=== PATIENT | female | born 1955 | race Caucasian/White ===

== ENCOUNTER 2019-12-29 15:20 | Inpatient (IN) | payer OTHER, MEDICAID ==
[~2019-12-29] VITALS: Ht 160 cm; Wt 54.0 kg
[2019-12-29] MEDS ORDERED: ATOR40TA28 PO (16:02)
[2019-12-29] MEDS ORDERED: PANT40TA25 PO (16:02)
[2019-12-29] MEDS ORDERED: LITH300C3 PO ×2 (16:10→23:08)
[2019-12-29] MEDS ORDERED: ALBU8HFA IH (16:14)
[2019-12-29] MEDS ORDERED: LISI-662 PO (16:14)
[2019-12-29] MEDS ORDERED: ADV250 IH (16:14)
[2019-12-29] MEDS ORDERED: HALOPERIDOL 5 MG TABLET PO PRN (17:00)
[2019-12-29 18:15] VITALS: BP 161/89
[2019-12-29] MEDS: LORazepam 2 MG TABLET PO PRN (18:38)
[2019-12-29] MEDS ORDERED: PNEUMOCOCCAL VACCINE POLYVALENT 0.5 ML VIAL [PPSV23] IM ONE (18:45)
[2019-12-29 19:35] VITALS: BP 141/83
[2019-12-29] MEDS ORDERED: ALBUTEROL SULFATE HFA 90 MCG/PUFF 8 GM INHALER IH PRN (20:15)
[2019-12-29] MEDS: LITHIUM CARBONATE 300 MG CAPSULE PO SCH (21:39)
[2019-12-29] MEDS: LISINOPRIL 20 MG TABLET PO SCH (21:39)
[2019-12-30 00:10] VITALS: BP 110/70
[2019-12-30] MEDS ORDERED: DOCUSATE SODIUM 100 MG CAPSULE PO PRN (07:00)
[2019-12-30] MEDS ORDERED: PETROLATUM,WHITE 28 GM JELLY TP PRN (07:00)
[2019-12-30] MEDS ORDERED: ACETAMINOPHEN 325 MG TABLET PO PRN (07:00)
[2019-12-30] MEDS ORDERED: BENZOCAINE/MENTHOL LOZENGE MM PRN (07:00)
[2019-12-30] MEDS ORDERED: CloNIDine HCL 0.1 MG TABLET PO PRN (07:00)
[2019-12-30] MEDS ORDERED: LOPERAMIDE HCL 2 MG CAPSULE PO PRN (07:00)
[2019-12-30] MEDS ORDERED: MAGNESIUM HYDROXIDE SUSPENSION 30 ML UDCUP PO PRN (07:00)
[2019-12-30] MEDS ORDERED: MAG HYDROX/AL HYDROX/SIMETH ES 30 ML SUSPENSION UDCUP PO PRN (07:00)
[2019-12-30] MEDS ORDERED: ONDANSETRON HCL 4 MG TABLET PO PRN (07:00)
[2019-12-30] MEDS ORDERED: IBUPROFEN 600 MG TABLET PO PRN (07:00)
[2019-12-30] MEDS ORDERED: BACITRACIN 28.4 GM OINTMENT TP PRN (07:00)
[2019-12-30 08:20] VITALS: BP 143/72
[2019-12-30] MEDS: PANTOPRAZOLE SODIUM 40 MG DR TABLET PO SCH (08:45)
[2019-12-30] MEDS: LISINOPRIL 20 MG TABLET PO SCH (08:45)
[2019-12-30] MEDS: ATORVASTATIN CALCIUM 40 MG TABLET PO SCH (08:46)
[2019-12-30] MEDS: FLUTICASONE/VILANTEROL 200-25 MCG/INH INHALER [14] IH SCH (08:49)
[2019-12-30 16:11] VITALS: BP 135/82
[2019-12-30] MEDS: LORazepam 2 MG TABLET PO PRN (18:50)
[2019-12-30] MEDS: LITHIUM CARBONATE 300 MG CAPSULE PO SCH (20:11)
[2019-12-31 00:06] VITALS: BP 128/85
[2019-12-31 01:09] VITALS: BP 124/87
[2019-12-31 01:10] VITALS: BP 124/87
[2019-12-31 08:20] LABS: BASOPHILS % (AUTO) 1.1 % (0.0-2.0); EOSINOPHILS % (AUTO) 5.7 % (1.0-6.0); HEMATOCRIT 41.6 % (36-46); HEMOGLOBIN 13.6 g/dL (12.0-16.0); LYMPHOCYTES # (AUTO) 1.6 K/uL (1.0-4.8); LYMPHOCYTES % (AUTO) 25.1 % (22.0-44.0); MEAN CORPUSCULAR HEMOGLOBIN 29.9 pg (26.0-34.0); MEAN CORPUSCULAR HGB CONC 32.8 G/dL (31.0-37.0); MEAN CORPUSCULAR VOLUME 91 fL (80-100); MONOCYTES # (AUTO) 0.4 K/uL (0.1-1.0); MONOCYTES % (AUTO) 6.3 % (2.0-9.0); NEUTROPHILS % (AUTO) 61.8 % (40.0-70.0); PLATELET COUNT (AUTO) 405 K/uL (150-450); RED BLOOD CELL COUNT(AUTO) 4.56 MIL/uL (4.00-5.20); RED CELL DISTRIBUTION WIDTH 13.6 % (11.5-14.5)
[2019-12-31 08:31] LABS: LITHIUM 0.31 mmol/L (0.60-1.20)
[2019-12-31] MEDS: ATORVASTATIN CALCIUM 40 MG TABLET PO SCH (08:38)
[2019-12-31] MEDS: PANTOPRAZOLE SODIUM 40 MG DR TABLET PO SCH (08:38)
[2019-12-31] MEDS: LISINOPRIL 20 MG TABLET PO SCH (08:38)
[2019-12-31] MEDS: FLUTICASONE/VILANTEROL 200-25 MCG/INH INHALER [14] IH SCH (08:39)
[2019-12-31 08:42] LABS: HEMOGLOBIN A1C 6.1 % (4.5-6.2)
[2019-12-31 09:17] LABS: ALANINE AMINOTRANSFERASE 22 U/L (12-78); ALKALINE PHOSPHATASE 66 U/L (46-116); ANION GAP 9 mmol/L (8-16); ASPARTATE AMINOTRANSFERASE 11 U/L (15-37); BILIRUBIN,TOTAL 0.2 mg/dL (0.1-1.0); CALCIUM, TOTAL 9.9 mg/dL (8.8-10.5); CARBON DIOXIDE 27 mmol/L (22-29); CHLORIDE 104 mmol/L (98-107); CHOLESTEROL 177 mg/dL (131-200); CREATININE 0.84 mg/dL (0.60-1.30); FREE T4 (FREE THYROXINE) 0.73 ng/dL (0.76-1.46); GLOMERULAR FILTR. RATE CALC > 60 mL/min (>60); GLUCOSE,RANDOM 106 mg/dL (70-110); HDL CHOLESTEROL 60 mg/dL (40-60); LDL CHOL (CALC.) 101 mg/dL (0-130); SODIUM SERUM 140 mmol/L (136-145); TOTAL PROTEIN, SERUM 7.2 g/dL (6.4-8.2); TRIGLYCERIDES 80 mg/dL (15-150); UREA NITROGEN, BLOOD 25 mg/dL (7-18)
[2019-12-31 10:22] VITALS: BP 145/69
[2019-12-31 16:25] VITALS: BP 137/87
[2019-12-31] MEDS: LITHIUM CARBONATE 300 MG CAPSULE PO SCH (20:14)
[2020-01-01 01:04] VITALS: BP 140/101
[2020-01-01] MEDS: LISINOPRIL 20 MG TABLET PO SCH (08:14)
[2020-01-01] MEDS: ATORVASTATIN CALCIUM 40 MG TABLET PO SCH (08:14)
[2020-01-01] MEDS: PANTOPRAZOLE SODIUM 40 MG DR TABLET PO SCH (08:14)
[2020-01-01] MEDS: FLUTICASONE/VILANTEROL 200-25 MCG/INH INHALER [14] IH SCH (08:15)
[2020-01-01 09:00] VITALS: BP 140/92
[2020-01-01 16:20] VITALS: BP 113/83
[2020-01-01] MEDS: LORazepam 2 MG TABLET PO PRN (16:43)
[2020-01-01] MEDS: LITHIUM CARBONATE 300 MG CAPSULE PO SCH (20:08)
[2020-01-01] MEDS: ZOLPIDEM TARTRATE 10 MG TABLET PO PRN (22:12)
[2020-01-02 07:03] VITALS: BP 122/87
[2020-01-02] MEDS: FLUTICASONE/VILANTEROL 200-25 MCG/INH INHALER [14] IH SCH (08:37)
[2020-01-02] MEDS: LISINOPRIL 20 MG TABLET PO SCH (08:37)
[2020-01-02] MEDS: PANTOPRAZOLE SODIUM 40 MG DR TABLET PO SCH (08:37)
[2020-01-02] MEDS: ATORVASTATIN CALCIUM 40 MG TABLET PO SCH (08:37)
[2020-01-02 08:51] VITALS: BP 132/93
[2020-01-02] MEDS: LORazepam 2 MG TABLET PO PRN (09:27)
[2020-01-02 16:14] VITALS: BP 115/84
[2020-01-02] MEDS: LITHIUM CARBONATE 300 MG CAPSULE PO SCH (20:18)
[2020-01-02] MEDS: ZOLPIDEM TARTRATE 10 MG TABLET PO PRN (21:16)
[2020-01-03 00:51] VITALS: BP 130/86
[2020-01-03 08:46] VITALS: BP 120/86
[2020-01-03] MEDS: PANTOPRAZOLE SODIUM 40 MG DR TABLET PO SCH (10:03)
[2020-01-03] MEDS: FLUTICASONE/VILANTEROL 200-25 MCG/INH INHALER [14] IH SCH (10:03)
[2020-01-03] MEDS: LISINOPRIL 20 MG TABLET PO SCH (10:03)
[2020-01-03] MEDS: ATORVASTATIN CALCIUM 40 MG TABLET PO SCH (10:07)
[2020-01-03] MEDS: LORazepam 2 MG TABLET PO PRN (13:29)
[2020-01-03 16:15] VITALS: BP 125/90
[2020-01-03] MEDS: LITHIUM CARBONATE 300 MG CAPSULE PO SCH (20:41)
[2020-01-04] MEDS: ZOLPIDEM TARTRATE 10 MG TABLET PO PRN (00:11)
[2020-01-04 00:37] VITALS: BP 116/77
[2020-01-04 08:28] VITALS: BP 129/87
[2020-01-04] MEDS: ATORVASTATIN CALCIUM 40 MG TABLET PO SCH (08:28)
[2020-01-04] MEDS: PANTOPRAZOLE SODIUM 40 MG DR TABLET PO SCH (08:28)
[2020-01-04] MEDS: LISINOPRIL 20 MG TABLET PO SCH (08:28)
[2020-01-04] MEDS: FLUTICASONE/VILANTEROL 200-25 MCG/INH INHALER [14] IH SCH (08:28)
[2020-01-04] MEDS ORDERED: FLUT1BLS IH (13:03)
== END 2020-01-04 14:40 | disposition home or self-care (01) | DRG 885 ==
LOC: B2S 16:53
PROVIDERS: ADMIT Psychiatry & Neurology Psychiatry; ATTEND Psychiatry & Neurology Psychiatry
PROC: 3E0234Z Introduction of Serum, Toxoid and Vaccine into Muscle, Percutaneous Approach (ICD-10-PCS; principal; 2019-12-29)
DX: F31.9 Bipolar disorder, unspecified (principal); R45.851 Suicidal ideations; F17.200 Nicotine dependence, unspecified, uncomplicated; F22 Delusional disorders; F41.9 Anxiety disorder, unspecified; G47.00 Insomnia, unspecified; K59.00 Constipation, unspecified; Z23 Encounter for immunization
CPT/HCPCS: 83036; 84439; 84443; J3535

== ENCOUNTER 2020-06-18 20:57 | Inpatient (IN) | payer OTHER, MEDICAID ==
[~2020-06-18] VITALS: Ht 160 cm; Wt 66.8 kg
[~2020-06-18 20:57] MED LIST: ATOR40TA28 PO; FLUT1BLS IH; LISI-662 PO; LITH300C3 PO
[2020-06-18] MEDS ORDERED: ACETAMINOPHEN 325 MG TABLET PO PRN (21:30)
[2020-06-18] MEDS ORDERED: HydrOXYzine PAMOATE 50 MG CAPSULE PO PRN (21:30)
[2020-06-18] MEDS ORDERED: MAG HYDROX/AL HYDROX/SIMETH ES 30 ML SUSPENSION UDCUP PO PRN (21:30)
[2020-06-18] MEDS ORDERED: TUBERCULIN, PURIFIED PROTEIN DERIVATIVE 5 TU/0.1 ML SYRINGE ID ONE (21:30)
[2020-06-18] MEDS ORDERED: OLANZapine 5 MG RAPDIS TABLET PO PRN (21:30)
[2020-06-18] MEDS ORDERED: MAGNESIUM HYDROXIDE SUSPENSION 30 ML UDCUP PO PRN (21:30)
[2020-06-18] MEDS ORDERED: CYANOCOBALAMIN 1,000 MCG/ML VIAL IM ONE (21:30)
[2020-06-18] MEDS ORDERED: DIAZEPAM 10 MG TABLET PO PRN (21:30)
[2020-06-18] MEDS ORDERED: PROMETHAZINE HCL 25 MG TABLET PO PRN (21:30)
[2020-06-18] MEDS ORDERED: GuaiFENesin/D-METHORPHAN [SUGAR-FREE] 200-20MG/10 ML SYRUP UDCUP PO PRN (21:30)
[2020-06-18] MEDS ORDERED: LOPERAMIDE HCL 2 MG CAPSULE PO PRN ×2 (21:30)
[2020-06-18 21:31] VITALS: BP 134/83
[2020-06-18 21:45] VITALS: BP 143/92
[2020-06-18] MEDS ORDERED: -PHARMACY VACCINE NOTE- MISC ONE (22:00)
[2020-06-18 22:09] VITALS: BP 143/92
[2020-06-18 22:40] VITALS: BP 138/96
[2020-06-18 23:40] VITALS: BP 129/84
[2020-06-19] VITALS (9 sets, daily range): BP systolic 114–150; BP diastolic 80–108
[2020-06-19] MEDS ORDERED: DIAZEPAM 10 MG TABLET PO PRN (07:00)
[2020-06-19] MEDS ORDERED: CloNIDine HCL 0.1 MG TABLET PO PRN (07:30)
[2020-06-19 08:10] LABS: BASOPHILS % (AUTO) 1.4 % (0.0-2.0); EOSINOPHILS % (AUTO) 5.5 % (1.0-6.0); HEMATOCRIT 35.9 % (36-46); HEMOGLOBIN 12.1 g/dL (12.0-16.0); LYMPHOCYTES # (AUTO) 1.4 K/uL (1.0-4.8); MEAN CORPUSCULAR HEMOGLOBIN 30.5 pg (26.0-34.0); MEAN CORPUSCULAR HGB CONC 33.6 G/dL (31.0-37.0); MEAN CORPUSCULAR VOLUME 91 fL (80-100); MONOCYTES # (AUTO) 0.4 K/uL (0.1-1.0); MONOCYTES % (AUTO) 7.4 % (2.0-9.0); NEUTROPHILS # (AUTO) 3.5 K/uL (1.8-7.7); NEUTROPHILS % (AUTO) 60.7 % (40.0-70.0); PLATELET COUNT (AUTO) 507 K/uL (150-450); RED BLOOD CELL COUNT(AUTO) 3.96 MIL/uL (4.00-5.20); RED CELL DISTRIBUTION WIDTH 13.7 % (11.5-14.5)
[2020-06-19 08:45] LABS: HEMOGLOBIN A1C 6.5 % (3.8-5.6)
[2020-06-19 08:47] LABS: ALBUMIN 3.8 g/dL (3.4-5.0); BILIRUBIN,TOTAL 0.3 mg/dL (0.1-1.0); CALCIUM, TOTAL 9.5 mg/dL (8.8-10.5); CHOL/HDL RATIO 3.5 (3.9-5.7); CREATININE 0.97 mg/dL (0.60-1.30); FREE T4 (FREE THYROXINE) 0.86 ng/dL (0.76-1.46); POTASSIUM 3.8 mmol/L (3.5-5.1); THYROID STIMULATING HORMONE 2.91 uIU/mL (0.36-3.74); TOTAL PROTEIN, SERUM 7.4 g/dL (6.4-8.2)
[2020-06-19] MEDS: FLUTICASONE/VILANTEROL 200-25 MCG/INH INHALER [14] IH SCH (09:04)
[2020-06-19] MEDS: LISINOPRIL 20 MG TABLET PO SCH (09:05)
[2020-06-19] MEDS: FLUoxetine HCL 10 MG CAPSULE PO SCH (09:05)
[2020-06-19] MEDS: DIAZEPAM 10 MG TABLET PO SCH ×4 (09:05→20:21)
[2020-06-19] MEDS: ATORVASTATIN CALCIUM 40 MG TABLET PO SCH (09:05)
[2020-06-19] MEDS: THIAMINE 100 MG TABLET PO SCH ×2 (09:06→16:30)
[2020-06-19] MEDS: FOLIC ACID 1 MG TABLET PO SCH (09:07)
[2020-06-19] MEDS: MULTIVITAMINS WITH MINERALS, THERAPEUTIC TABLET PO SCH (09:07)
[2020-06-19] MEDS: OLANZapine 5 MG RAPDIS TABLET PO SCH (20:21)
[2020-06-19] MEDS: ZOLPIDEM TARTRATE 10 MG TABLET PO PRN (23:27)
[2020-06-20 00:05] VITALS: BP 133/85
[2020-06-20 05:09] VITALS: BP 135/74
[2020-06-20 08:14] VITALS: BP 129/80
[2020-06-20] MEDS: FLUoxetine HCL 10 MG CAPSULE PO SCH (09:01)
[2020-06-20] MEDS: DIAZEPAM 10 MG TABLET PO SCH ×4 (09:02→20:21)
[2020-06-20] MEDS: ATORVASTATIN CALCIUM 40 MG TABLET PO SCH (09:02)
[2020-06-20] MEDS: LISINOPRIL 20 MG TABLET PO SCH (09:02)
[2020-06-20] MEDS: THIAMINE 100 MG TABLET PO SCH ×2 (09:02→17:15)
[2020-06-20] MEDS: MULTIVITAMINS WITH MINERALS, THERAPEUTIC TABLET PO SCH (09:02)
[2020-06-20] MEDS: FOLIC ACID 1 MG TABLET PO SCH (09:02)
[2020-06-20] MEDS: FLUTICASONE/VILANTEROL 200-25 MCG/INH INHALER [14] IH SCH (09:02)
[2020-06-20 16:31] VITALS: BP 122/89
[2020-06-20] MEDS: OLANZapine 5 MG RAPDIS TABLET PO SCH (20:21)
[2020-06-20] MEDS: AMITRIPTYLINE HCL 50 MG TABLET PO SCH (21:00)
[2020-06-21 00:56] VITALS: BP 114/81
[2020-06-21] MEDS ORDERED: DIAZEPAM 5 MG TABLET PO PRN (07:00)
[2020-06-21 08:37] VITALS: BP 134/82
[2020-06-21] MEDS: DIAZEPAM 5 MG TABLET PO SCH ×4 (08:59→19:56)
[2020-06-21] MEDS: ATORVASTATIN CALCIUM 40 MG TABLET PO SCH (08:59)
[2020-06-21] MEDS: FOLIC ACID 1 MG TABLET PO SCH (08:59)
[2020-06-21] MEDS: MULTIVITAMINS WITH MINERALS, THERAPEUTIC TABLET PO SCH (08:59)
[2020-06-21] MEDS: LISINOPRIL 20 MG TABLET PO SCH (08:59)
[2020-06-21] MEDS: THIAMINE 100 MG TABLET PO SCH ×2 (08:59→17:05)
[2020-06-21] MEDS: FLUTICASONE/VILANTEROL 200-25 MCG/INH INHALER [14] IH SCH (09:02)
[2020-06-21] MEDS: ALBUTEROL SULFATE HFA 90 MCG/PUFF 8 GM INHALER IH PRN (13:05)
[2020-06-21 16:52] VITALS: BP 116/62
[2020-06-21 19:51] VITALS: BP 134/69
[2020-06-21] MEDS: OLANZapine 5 MG RAPDIS TABLET PO SCH (19:56)
[2020-06-21] MEDS: AMITRIPTYLINE HCL 50 MG TABLET PO SCH (19:56)
[2020-06-21] MEDS: ZOLPIDEM TARTRATE 10 MG TABLET PO PRN (22:44)
[2020-06-22] MEDS ORDERED: DIAZEPAM 5 MG TABLET PO PRN (07:00)
[2020-06-22] MEDS: THIAMINE 100 MG TABLET PO SCH ×2 (08:49→16:31)
[2020-06-22] MEDS: LISINOPRIL 20 MG TABLET PO SCH (08:49)
[2020-06-22] MEDS: MULTIVITAMINS WITH MINERALS, THERAPEUTIC TABLET PO SCH (08:49)
[2020-06-22] MEDS: ATORVASTATIN CALCIUM 40 MG TABLET PO SCH (08:49)
[2020-06-22] MEDS: FOLIC ACID 1 MG TABLET PO SCH (08:49)
[2020-06-22] MEDS: FLUTICASONE/VILANTEROL 200-25 MCG/INH INHALER [14] IH SCH (08:50)
[2020-06-22 08:56] VITALS: BP 119/87
[2020-06-22] MEDS: ALBUTEROL SULFATE HFA 90 MCG/PUFF 8 GM INHALER IH PRN (14:57)
[2020-06-22 16:53] VITALS: BP 129/72
[2020-06-22 16:54] VITALS: BP 129/72
[2020-06-22] MEDS: AMITRIPTYLINE HCL 50 MG TABLET PO SCH (20:24)
[2020-06-22] MEDS: OLANZapine 5 MG RAPDIS TABLET PO SCH (20:24)
[2020-06-22] MEDS: ZOLPIDEM TARTRATE 10 MG TABLET PO PRN (23:46)
[2020-06-23 00:34] VITALS: BP 140/98
[2020-06-23 01:09] VITALS: BP 140/98
[2020-06-23] MEDS: LISINOPRIL 20 MG TABLET PO SCH (08:35)
[2020-06-23] MEDS: ATORVASTATIN CALCIUM 40 MG TABLET PO SCH (08:35)
[2020-06-23] MEDS: MULTIVITAMINS WITH MINERALS, THERAPEUTIC TABLET PO SCH (08:35)
[2020-06-23] MEDS: FOLIC ACID 1 MG TABLET PO SCH (08:35)
[2020-06-23] MEDS: THIAMINE 100 MG TABLET PO SCH ×2 (08:35→16:39)
[2020-06-23] MEDS: FLUTICASONE/VILANTEROL 200-25 MCG/INH INHALER [14] IH SCH (08:36)
[2020-06-23 09:10] VITALS: BP 122/74
[2020-06-23 16:45] VITALS: BP 118/87
[2020-06-23 19:54] VITALS: BP 118/87
[2020-06-23] MEDS: OLANZapine 5 MG RAPDIS TABLET PO SCH (20:57)
[2020-06-23] MEDS: AMITRIPTYLINE HCL 50 MG TABLET PO SCH (20:57)
[2020-06-23] MEDS: ZOLPIDEM TARTRATE 10 MG TABLET PO PRN (20:57)
[2020-06-24 01:55] VITALS: BP 129/82
[2020-06-24 08:36] VITALS: BP 133/83
[2020-06-24] MEDS: FOLIC ACID 1 MG TABLET PO SCH (08:43)
[2020-06-24] MEDS: LISINOPRIL 20 MG TABLET PO SCH (08:43)
[2020-06-24] MEDS: MULTIVITAMINS WITH MINERALS, THERAPEUTIC TABLET PO SCH (08:43)
[2020-06-24] MEDS: ATORVASTATIN CALCIUM 40 MG TABLET PO SCH (08:43)
[2020-06-24] MEDS: FLUTICASONE/VILANTEROL 200-25 MCG/INH INHALER [14] IH SCH (08:44)
[2020-06-24] MEDS: THIAMINE 100 MG TABLET PO SCH ×2 (08:44→16:28)
[2020-06-24 16:14] VITALS: BP 116/72
[2020-06-24] MEDS: OLANZapine 5 MG RAPDIS TABLET PO SCH (20:08)
[2020-06-24] MEDS: AMITRIPTYLINE HCL 50 MG TABLET PO SCH (20:08)
[2020-06-25 06:33] VITALS: BP 140/90
[2020-06-25] MEDS: FLUTICASONE/VILANTEROL 200-25 MCG/INH INHALER [14] IH SCH (09:40)
[2020-06-25 09:41] VITALS: BP 130/83
[2020-06-25] MEDS: MULTIVITAMINS WITH MINERALS, THERAPEUTIC TABLET PO SCH (09:41)
[2020-06-25] MEDS: THIAMINE 100 MG TABLET PO SCH ×2 (09:41→17:04)
[2020-06-25] MEDS: ATORVASTATIN CALCIUM 40 MG TABLET PO SCH (09:41)
[2020-06-25] MEDS: FOLIC ACID 1 MG TABLET PO SCH (09:42)
[2020-06-25] MEDS: LISINOPRIL 20 MG TABLET PO SCH (09:42)
[2020-06-25 16:12] VITALS: BP 134/78
[2020-06-25] MEDS: AMITRIPTYLINE HCL 50 MG TABLET PO SCH (20:30)
[2020-06-25] MEDS: OLANZapine 5 MG RAPDIS TABLET PO SCH (20:31)
[2020-06-26 05:29] VITALS: BP 120/91
[2020-06-26 09:10] VITALS: BP 125/76
[2020-06-26] MEDS: MULTIVITAMINS WITH MINERALS, THERAPEUTIC TABLET PO SCH (09:54)
[2020-06-26] MEDS: LISINOPRIL 20 MG TABLET PO SCH (09:54)
[2020-06-26] MEDS: ATORVASTATIN CALCIUM 40 MG TABLET PO SCH (09:54)
[2020-06-26] MEDS: THIAMINE 100 MG TABLET PO SCH ×2 (09:55→16:42)
[2020-06-26] MEDS: FOLIC ACID 1 MG TABLET PO SCH (09:55)
[2020-06-26] MEDS: ALBUTEROL SULFATE HFA 90 MCG/PUFF 8 GM INHALER IH PRN (11:21)
[2020-06-26 16:14] VITALS: BP 125/47
[2020-06-26] MEDS: FLUTICASONE/VILANTEROL 200-25 MCG/INH INHALER [14] IH SCH (16:45)
[2020-06-26] MEDS: OLANZapine 10 MG RAPDIS TABLET PO SCH (20:00)
[2020-06-26] MEDS: AMITRIPTYLINE HCL 50 MG TABLET PO SCH (20:58)
[2020-06-27 00:12] VITALS: BP 135/80
[2020-06-27] MEDS: ZOLPIDEM TARTRATE 10 MG TABLET PO PRN (00:44)
[2020-06-27 08:31] VITALS: BP 119/68
[2020-06-27] MEDS: THIAMINE 100 MG TABLET PO SCH ×2 (08:31→16:18)
[2020-06-27] MEDS: LISINOPRIL 20 MG TABLET PO SCH (08:31)
[2020-06-27] MEDS: MULTIVITAMINS WITH MINERALS, THERAPEUTIC TABLET PO SCH (08:31)
[2020-06-27] MEDS: ATORVASTATIN CALCIUM 40 MG TABLET PO SCH (08:31)
[2020-06-27] MEDS: FOLIC ACID 1 MG TABLET PO SCH (08:31)
[2020-06-27] MEDS: FLUTICASONE/VILANTEROL 200-25 MCG/INH INHALER [14] IH SCH (08:33)
[2020-06-27 16:00] VITALS: BP 128/86
[2020-06-27] MEDS: AMITRIPTYLINE HCL 50 MG TABLET PO SCH (20:04)
[2020-06-27] MEDS: OLANZapine 10 MG RAPDIS TABLET PO SCH (20:04)
[2020-06-28 01:13] VITALS: BP 154/87
[2020-06-28] MEDS: THIAMINE 100 MG TABLET PO SCH ×2 (08:31→16:32)
[2020-06-28] MEDS: FOLIC ACID 1 MG TABLET PO SCH (08:31)
[2020-06-28] MEDS: ATORVASTATIN CALCIUM 40 MG TABLET PO SCH (08:31)
[2020-06-28] MEDS: LISINOPRIL 20 MG TABLET PO SCH (08:31)
[2020-06-28] MEDS: MULTIVITAMINS WITH MINERALS, THERAPEUTIC TABLET PO SCH (08:31)
[2020-06-28] MEDS: FLUTICASONE/VILANTEROL 200-25 MCG/INH INHALER [14] IH SCH (08:32)
[2020-06-28 10:02] VITALS: BP 123/78
[2020-06-28 16:30] VITALS: BP 129/78
[2020-06-28] MEDS: ALBUTEROL SULFATE HFA 90 MCG/PUFF 8 GM INHALER IH PRN (17:17)
[2020-06-28] MEDS: AMITRIPTYLINE HCL 50 MG TABLET PO SCH (20:20)
[2020-06-28] MEDS: OLANZapine 10 MG RAPDIS TABLET PO SCH (20:20)
[2020-06-28] MEDS: ZOLPIDEM TARTRATE 10 MG TABLET PO PRN (22:24)
[2020-06-29 00:46] VITALS: BP 119/74
[2020-06-29 08:11] VITALS: BP 112/78
[2020-06-29] MEDS: ATORVASTATIN CALCIUM 40 MG TABLET PO SCH (08:29)
[2020-06-29] MEDS: LISINOPRIL 20 MG TABLET PO SCH (08:29)
[2020-06-29] MEDS: MULTIVITAMINS WITH MINERALS, THERAPEUTIC TABLET PO SCH (08:29)
[2020-06-29] MEDS: FLUTICASONE/VILANTEROL 200-25 MCG/INH INHALER [14] IH SCH (08:31)
[2020-06-29 16:34] VITALS: BP 126/75
[2020-06-29] MEDS: ALBUTEROL SULFATE HFA 90 MCG/PUFF 8 GM INHALER IH PRN (17:51)
[2020-06-29] MEDS: AMITRIPTYLINE HCL 50 MG TABLET PO SCH (20:09)
[2020-06-29] MEDS: OLANZapine 10 MG RAPDIS TABLET PO SCH (20:09)
[2020-06-29] MEDS: ZOLPIDEM TARTRATE 10 MG TABLET PO PRN (22:12)
[2020-06-30 01:21] VITALS: BP 124/86
[2020-06-30] MEDS: LISINOPRIL 20 MG TABLET PO SCH (08:21)
[2020-06-30] MEDS: MULTIVITAMINS WITH MINERALS, THERAPEUTIC TABLET PO SCH (08:21)
[2020-06-30] MEDS: ATORVASTATIN CALCIUM 40 MG TABLET PO SCH (08:21)
[2020-06-30] MEDS: FLUTICASONE/VILANTEROL 200-25 MCG/INH INHALER [14] IH SCH (08:23)
[2020-06-30 08:26] VITALS: BP 125/76
[2020-06-30] MEDS ORDERED: OLAN10TA6 PO (10:35)
[2020-06-30] MEDS ORDERED: AMIT50TA3 PO (10:35)
== END 2020-06-30 13:15 | disposition home or self-care (01) | DRG 885 ==
LOC: B2S 21:22
PROVIDERS: ADMIT Psychiatry & Neurology Psychiatry; ATTEND Psychiatry & Neurology Psychiatry
DX: F33.3 Major depressive disorder, recurrent, severe with psychotic symptoms (principal); B19.20 Unspecified viral hepatitis C without hepatic coma; R45.851 Suicidal ideations; E78.00 Pure hypercholesterolemia, unspecified; F10.20 Alcohol dependence, uncomplicated; F17.210 Nicotine dependence, cigarettes, uncomplicated; F41.9 Anxiety disorder, unspecified; G47.00 Insomnia, unspecified; I10 Essential (primary) hypertension; J44.9 Chronic obstructive pulmonary disease, unspecified; K21.9 Gastro-esophageal reflux disease without esophagitis; K59.00 Constipation, unspecified; Z79.899 Other long term (current) drug therapy; Z91.19 Patient's noncompliance with other medical treatment and regimen
CPT/HCPCS: 83036; 84439; 84443; 86592; J3420; J3535